=== PATIENT | female | born 1985 | race Caucasian/White ===

== ENCOUNTER 2020-03-28 16:10 | Emergency (ER) | payer OTHER ==
[2020-03-28] MEDS ORDERED: IBUPROFEN 600 MG TABLET (FP) PO ONE (16:42)
[2020-03-28 16:45] VITALS: BP 113/72; PULSE 74; TEMP 98.4; BMI 29.2
--- NOTE | 2020-03-28 16:45 | PDOC ---
Documentation entered by Isa Jaquez SCRIBE, acting as scribe for Maddison Daniels MD. Maddison Daniels MD: This documentation has been prepared by the Leonid peguero Xhesika, SCRIBE, under my direction and personally reviewed by me in its entirety. I confirm that the documentation accurately reflects all work, treatment, procedures, and medical decision making performed by me. History of Present Illness - General Chief Complaint: Pain Stated Complaint: LEFT KNEE PAIN Time Seen by Provider: 03/28/20 16:16 History Source: Patient Exam Limitations: No Limitations - History of Present Illness Initial Comments: 03/28/20 16:46 HPI The patient is a 34 y/o F with a PMH of asthma, gastric ulcers and multiple environmental allergies who presents to the ED with 2 weeks of bilateral knee swelling, L>R. Pt states she has been doing aerobics, walking and jogging. Pt reports 5 day of L knee pain, associated with L knee tingling when sitting. Pt states her pain is worse with walking and going up the stairs. Pt states she has not worked out or walked for the past week. Pt notes she has been icing her knee and elevating it. Pt admits to heavy exercising and running which she escalated pretty quickly, where she now runs 5 -7 miles per day, though not since last week due to her knee swelling/pain. Pt reports her PCP advised her to come to the ED for an XRAY and further evaluation. Pt notes she has been taking Motrin for the past 2 days, but did not take any today. Denies fever, chills, chest pain, SOB, palpitation, dizziness, weakness, N, V, D, abdominal pain, bladder and bowel problems. Denies any Lower extremity numbness or focal weakness, gait instability or falls.. Allergies: environmental allergies Past Medical History: asthma, gastric ulcers, allergies Social history: Lives with family. No tobacco, ETOH or drug use. Surgical history: Meds: as documented in EMR PMD: Dr. Joby RUIZ Constitutional: no fevers or chills. Abdomen: no abdominal pain MUSCULOSKELETAL: +Bilateral knee swelling, L>R. + L knee pain. +L knee tingling Back: no back pain SKIN: no redness or skin changes, no discharge, no rash. No wounds. Hematologic: no easy bruising/bleeding. NEUROLOGIC: No weakness, numbness or tingling. Allergic/Immunologic: no allergies All other systems reviewed and negative, or as documented in HPI. PE General: NAD, well appearing Abdomen: soft, no tenderness, nondistended Vascular: 2+ DP pulses symmetric and equal. Back: no midline tenderness, no stepoffs, FROM MSK: soft compartment. no calf tenderness. 5/5 plantar and dorsiflexion. SILT. no laxity at knee jt. 2+ DP pulses bilaterally. No palpable effusion. no warmth, no ecchymosis. no swelling to b/l knees. no calf tenderness noted Neuro: alert, no focal neurologic deficits, gait stable. Skin: color normal color, warm and well perfused. Cap refill <2 sec. 03/28/20 16:49 Past History - Medical History Allergies/Adverse Reactions: Allergies Allergy/AdvReac Type Severity Reaction Status Date / Time No Known Allergies Allergy Verified 03/28/20 16:11 Home Medications: Ambulatory Orders NK [No Known Home Medication] 03/28/20 Asthma: No Cancer: No Cardiac Disorders: No COPD: No Diabetes: No GI Disorders: Yes (GASTRIC ULCER) HTN: No Seizures: No Thyroid Disease: No - Reproductive History Therapeutic (s) & number: No - Immunization History Immunization Up to Date: Yes - Psycho-Social/Smoking History Smoking Status: No Smoking History: Never smoked Have you smoked in the past 12 months: No Number of Cigarettes Smoked Daily: 0 Cigars Per Day: 0 Medical Decision Making - Medical Decision Making 03/28/20 16:51 Vital Signs Temp Pulse Resp BP Pulse Ox 98.4 F 74 20 113/72 100 03/28/20 16:11 03/28/20 16:11 03/28/20 16:11 03/28/20 16:11 03/28/20 16:11 Vitals reviewed within normal limits Differential diagnosis includes knee sprain, strain, effusion. There is no evidence to suggest DVT. There is also no evidence to suggest infection or bursitis or septic arthritis. Symptoms are most consistent with a knee sprain and heavy exercise causing stress to the knees particularly with going down the stairs. Patient also admits to not wearing properly fitted shoes and has also progressed her exercise regimen pretty rapidly since she resumed her exercising over the last couple of weeks. She had last worked out back in December before the pandemic. X-ray of the affected/left knee negative for fracture dislocation, no acute pathology is noted Patient given Carmine wrap for compression, rest ice and elevation recommended, range of motion exercises as tolerated, rest adequately. advised properly fitted shoes and gradual rise in her exercise regimen to avoid strain/trauma. Orthopedic and primary care follow-up. Conservative management, OTC analgesia including Tylenol/Motrin as needed, preferably NSAIDs due to anti-inflammatory component. Return precautions discussed. Patient made aware of impression and plan and verbalized understanding 03/28/20 16:53 Discharge - Discharge Information Problems reviewed: Yes Clinical Impression/Diagnosis: Left anterior knee pain Condition: Improved Disposition: HOME - Admission No - Follow up/Referral Referrals: Jhonathan Noguera MD [Staff Physician] - Mahad Porter DO [Staff Physician] - Herve Mcclain MD [Staff Physician] - - Patient Discharge Instructions Patient Printed Discharge Instructions: DI for Knee Pain Additional Instructions: You most likely have musculoskeletal strain involving your knee Avoid heavy lifting or strenuous activity to minimize further injury This should heal over the next 3-5 days. RICE rest ice elevate the affected area Rest, Ice (20 minutes at a time, 3 times a day), Compression (CARMINE wrap or splint), Elevation (above the heart). Apply ice to the area for 10 minutes every 2 hours for the first 2 days after the injury to reduce swelling. CARMINE wrap will help with compression, swelling and the pain physical activity as tolerated. continue with range of motion exercises, as this will facilitate the healing process; avoid being bed bound and immobile. If you have any worsening of symptoms, including severe pain/swelling/redness/numbness/changes in sensation/weakness/paralysis or any other concerns please return to the Emergency Department immediately. You were given a copy of the results from any tests performed today in the Emergency Department which have results available. Show these to your doctor(s). Some of the tests we sent may not have results yet so please call or have your doctor call the Emergency Department to follow up on all results. Please continue taking your home medications as directed. Do not use alcohol when taking any medication (especially antibiotics, tylenol or other pain medication) unless you check with the doctor or pharmacist. -May take ibuprofen 400-600mg and/or tylenol 650 to 975 mg every 6 hours as needed for mild to moderate pain, available over the counter. This does not require narcotics, as it will precipitate injuries and falls. Please follow up with your primary doctor(s) or orthopedics specialist within the next 1 week, but seek medical care sooner if your symptoms persist or w orsen. Please call as soon as possible for an appointment. If you cannot follow up with your doctor please return to the Emergency Department for any urgent issues. Follow up with your primary care physician in 1 week if symptoms persist, or with orthopedics specialists if needed, referrals have been provided. - Post Discharge Activity
== END 2020-03-28 16:51 | disposition home or self-care (01) ==
LOC: FER 16:10 → SUPCPDRO 16:10 → FER 16:51
DX: M25.562 Pain in left knee (principal)
CPT/HCPCS: 73562-TC-LT-FY; 99283-25

== ENCOUNTER 2020-07-11 16:24 | Emergency (ER) | payer OTHER ==
--- OUTSIDE RECORDS SUMMARY | 2020-07-11 16:32 | XMS ---
:1985 Author Organization [facility] Care Team Providers Name Role Phone JAYLIN ALAMO. Unavailable Unavailable Re-disclosure Warning The records that you are about to access may contain information from federally- assisted alcohol or drug abuse programs. If such information is present, then the following federally mandated warning applies: This information has been disclosed to you from records protected by federal confidentiality rules (42 CFR part 2). The federal rules prohibit you from making any further disclosure of this information unless further disclosure is expressly permitted by the written consent of the person to whom it pertains or as otherwise permitted by 42 CFR part 2. A general authorization for the release of medical or other information is NOT sufficient for this purpose. The Federal rules restrict any use of the information to criminally investigate or prosecute any alcohol or drug abuse patient.The records that you are about to access may contain highly sensitive health information, the redisclosure of which is protected by Article 27-F of the [facility] Public Health law. If you continue you may haveaccess to information: Regarding HIV / AIDS; Provided by facilities licensed or operated by the [facility] Office of Mental Health; or Provided by the [facility] Office for People With Developmental Disabilities. If such information is present, then the following [facility] mandated warning applies: This information has been disclosed to you from confidential records which are protected by state law. State law prohibits you from making any further disclosure of this information without the specific written consent of the person to whom it pertains, or as otherwise permitted by law. Any unauthorized further disclosure in violation of state law may result in a fine or mcc sentence or both. A general authorization for the release of medical or other information is NOT sufficient authorization for further disclosure. Encounters Encounter Providers Location Date Indications Data Source(s ) Outpatient Attender: CALLY 01/07/2020 Z03.818 [facility] JAYLIN ArreolaAdmitter: 03:52:00 AM Health Care JAYLIN ALAMO EDT Corpora tion Z03.818 Insurance Providers Payer name Policy type Policy ID Covered Covered constitution party's Policy P maria l / Coverage constitution party ID relationship to [employer] ormation type tang MEDICAID [id number] SP [id number] MVP [id number] SP [id number] ESSENTIAL PLAN 1 2 MVP [id number] SP [id number] ESSENTIAL PLAN 1 2 Problems, Conditions, and Diagnoses Code Display Name Description Problem Type Effective Data Sour ce(s) Dates Z03.818 Encounter for ENCNTR FOR OBS Diagnosis 01/07/2020 [facility] observation for FOR SUSP EXPSR TO 03:52:00 AM Spect[employer] [facility] suspected OTH BIOLG AGENTS [employer] poration exposure to other RULED OUT biological agents ruled out Results ID Date Data Source [id number] 01/07/2020 12:00:00 AM EDT [facility] Name Value Range Interpretation Code Description Data Emmie rce(s) Supporting Document(s ) 2019-nCoV [facility] RNA XXX DANIEL+probe- Imp This lab was ordered by [facility] and reported by [employer] Procedure
[2020-07-11] MEDS ORDERED: MAG HYDROX/AL HYDROX/SIMETH 30 ML UNIT-DOSE CUP PO ONE (16:39)
[2020-07-11] MEDS ORDERED: PANTOPRAZOLE 40 MG TABLET PO ONE (16:39)
[2020-07-11] MEDS ORDERED: ACETAMINOPHEN 325 MG TABLET (FP) PO ONE (16:39)
[2020-07-11] MEDS ORDERED: ONDANSETRON *ODT* 4 MG TABLET SL ONE (16:40)
--- NOTE | 2020-07-11 16:41 | PDOC ---
History of Present Illness - General Chief Complaint: Pain Stated Complaint: abd pain Time Seen by Provider: 07/11/20 16:30 History Source: Patient Exam Limitations: No Limitations - History of Present Illness Initial Comments: 07/11/20 16:41 HPI 35 y/o F with a PMH of asthma, gastric ulcers and multiple environmental allergies who presents to the ED with 2 weeks of intermittent epigastric pain. Pt states she had worsening epigastric abdominal pain today, where it was described as "sharp" and achy, radiating around to her back, associated with nausea and one episode of NBNB emesis. she took pepcid without relief. 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 denies food triggers or precipitants; has been compliant with her diet to minimize citrus fruits, spicy foods, fatty foods LMP about 1 week ago on 07/03/20, denies Denies fever, chills, chest pain, SOB, palpitation, dizziness, weakness, diarrhea, bloody stools or emesis, bladder and bowel problems. Denies any Lower extremity numbness or focal weakness, no hematuria, no frequency or urgency or dysuria. Allergies: environmental allergies Past Medical History: asthma, gastric ulcers, allergies Social history: Lives with family. No tobacco, ETOH or drug use. Surgical history: Meds: as documented in EMR PMD: Dr. Hemphill Review of systems Constitutional: no fevers or chills. No weakness HEENT: no headache or dizziness. No congestion. No visual/hearing disturbances. CVS: no cp or syncope. Resp: no sob. No cough. Gastrointestinal: +abdominal pain, nausea, vomiting, No bloody stools, no diarrhea. Genitourinary: no urinary sx, hematuria. no urgency/frequency or dysuria. MUSCULOSKELETAL: No joint pain and swelling. No neck or back pain. SKIN: no redness or skin changes, no discharge, no rash. No wounds. Hematologic: no easy bruising/bleeding. NEUROLOGIC: No headache, dizziness, LOC or altered mental status. No weakness, numbness or tingling. Psych: no anxiety or depression Allergic/Immunologic: no allergies All other systems reviewed and negative, or as documented in HPI. Physical exam General: Well appearing, awake and alert, NAD. HEENT: NCAT, PERRL, EOMI, clear conjunctiva, anicteric, moist mucus membranes, clear oropharynx, no oral lesions.. Neck: neck supple, FROM Resp: CTAB, normal and even respirations, no respiratory distress CVS: RRR, no murmurs, 2+ peripheral pulses throughout, no peripheral edema Abdomen: soft, nondistended. +epigastric TTP. no goodwin's sign. no mcburney's point tenderness, no rebound or guarding. Back: nontender, normal inspection and ROM MSK: no edema, MEI x4, ROM intact. No clubbing or cyanosis. normal bulk and tone. Extremities: no calf tenderness Neuro: alert, oriented appropriately; no focal neurologic deficits Psych: Calm and cooperative Skin: warm and well perfused, cap refill <2 sec, normal color, no rash or skin discoloration. 07/11/20 16:41 07/11/20 16:43 07/11/20 17:07 07/11/20 17:13 Past History - Medical History Allergies/Adverse Reactions: Allergies Allergy/AdvReac Type Severity Reaction Status Date / Time No Known Allergies Allergy Verified 07/11/20 16:25 Home Medications: Ambulatory Orders Loratadine 10 mg PO DAILY 07/11/20 Mag Hydrox/Al Hydrox/Simeth [Mylanta Suspension -] 30 ml PO Q6H PRN #1 bottle 07/11/20 Ondansetron [Zofran *Odt*] 4 mg SL TID PRN #9 od.tablet 07/11/20 Asthma: No Cancer: No Cardiac Disorders: No COPD: No Diabetes: No GI Disorders: Yes (GASTRIC ULCER) HTN: No Seizures: No Thyroid Disease: No - Reproductive History Therapeutic (s) & number: No - Immunization History Immunization Up to Date: Yes - Psycho-Social/Smoking History Smoking Status: No Smoking History: Never smoked Have you smoked in the past 12 months: No Number of Cigarettes Smoked Daily: 0 Cigars Per Day: 0 ED Treatment Course - LABORATORY CBC & Chemistry Diagram: 07/11/20 17:00 07/11/20 17:00 Medical Decision Making - Medical Decision Making 07/11/20 17:07 DDx abdominal pain: Renal colic, biliary colic, metabolic/electrolyte derangements. GERD, PUD, esophageal spasm, pancreatitis, hepatitis, constipation, colitis, gastroenteritis, cholecystitis, UTI, pyelonephritis, ileus, SBO, medication side effect, hernia, appendicitis, diverticulitis, mesenteric ischemia. msk strain, mesenteric adenitis, psoas abscess. - no GIB - no pelvic sx. no lower abdominal tenderness. - labs and lytes wnl. UA neg, neg preg test. - lipase wnl The patient appears comfortable and states that pain is improved. Given medications pepcid, maalox, zofran, tylenol and IVF with clinical improvement. this is likely related to her gastritis/PUD, doubt acute pathology, doubt biliary or intra abdominal pathology. Tolerating oral intake. Vital signs reviewed and are normal. On repeat physical exam, the abdomen is soft and nontender, no suggestive findings for acute abdominal process at this time. All diagnostics tests reviewed and discussed with the patient. The patient was advised that even though there is no evidence of a surgical emergency at this time, sometimes this is not visible early in a disease course and that if there is additional pain they are to return for repeat evaluation. The patient stated understanding of this, has decision making capacity and is discharged in stable condition. The patient was instructed to return to the emergency department for re-evaluation in 8-12 hours and sooner if they feel worse in any way. GI follow up and referrals given, PMD follow up with Dr Hemphill 07/12/20 17:03 Discharge - Discharge Information Problems reviewed: Yes Clinical Impression/Diagnosis: Epigastric abdominal pain Condition: Improved Disposition: HOME - Admission No - Additional Discharge Information Prescriptions: Mag Hydrox/Al Hydrox/Simeth [Mylanta Suspension -] 30 ml PO Q6H PRN #1 bottle PRN Reason: heartburn Ondansetron [Zofran *Odt*] 4 mg SL TID PRN #9 od.tablet PRN Reason: nausea/vomiting - Follow up/Referral Referrals: Deon Hemphill MD, MD [Staff Physician] - Vel Ruiz MD [Staff Physician] - Vanessa Cleary MD [Staff Physician] - Oneil Jackman DO [Staff Physician] - - Patient Discharge Instructions Patient Printed Discharge Instructions: Gastritis (Alternative Therapy), DI for Gastritis, DI for Abdominal Pain-Adult Additional Instructions: Please return to the emergency department immediately should you feel worse in any way or have any of the following symptoms: increasing or different abdominal pain, persistent vomiting, fevers or shaking chills. Please return to the emergency department for a recheck in 8-12 hours if the pain is persistent or worse so we can re-evaluate you and ensure that you are not developing a problem that would require surgery or hospitalization. - Post Discharge Activity Work/Back to School Note: Back to Work
[2020-07-11] MEDS ORDERED: ONDANSETRON 4 MG/2 ML VIAL IVPUSH ONE (16:48)
[2020-07-11] MEDS ORDERED: FAMOTIDINE 20 MG/50 ML IVPB 20 MG/50 ML MG IVPB ONE ×2 (16:49→17:10)
[2020-07-11] MEDS ORDERED: ACETAMINOPHEN 500 MG TABLET (FP) ONE (17:10)
[2020-07-11] MEDS ORDERED: ONDANSETRON 4 MG/2 ML VIAL ONE (17:10)
[2020-07-11] MEDS ORDERED: MAG HYDROX/AL HYDROX/SIMETH 30 ML UNIT-DOSE CUP ONE (17:10)
[2020-07-11 17:23] LABS: BASO % 0.6 % (0-2.0); HEMATOCRIT 39.2 % (32.4-45.2); HEMOGLOBIN 13.1 GM/dl (10.7-15.3); LYMPH % 23.7 % (8-40); MCH 31.3 pg (25.7-33.7); MCHC 33.3 g/dl (32.0-36.0); MEAN CELL VOLUME 93.9 fl (80-96); MEAN PLT VOLUME 10.2 fl (7.5-11.1); NEUT % 69.7 % (42.8-82.8); PLATELET COUNT 281 K/MM3 (134-434); RBC 4.17 M/mm3 (3.60-5.2); RDW 13.1 % (11.6-15.6); WHITE BLOOD COUNT 8.4 K/mm3 (4.0-10.8)
[2020-07-11 17:26] LABS: BILIRUBIN,TOTAL 0.4 mg/dl (0.2-1); CALCIUM 9.1 mg/dl (8.5-10); CREATININE 0.7 mg/dl (0.55-1.3); POTASSIUM 3.9 mmol/L (3.5-5.1); TOT PROT 7.5 g/dl (6.4-8.2)
[2020-07-11 17:50] LABS: HCG,QUALITATIVE URINE Negative
[2020-07-11 17:55] VITALS: BMI 28.0
[2020-07-11] MEDS ORDERED: SODIUM CHLORIDE 0.9% 500 ML INFUS.BAG IV ONE (17:56)
[2020-07-11 18:21] VITALS: BP 119/76; PULSE 81; TEMP 99.5
== END 2020-07-11 19:07 | disposition home or self-care (01) ==
LOC: FER 16:24
PROC: 3E033GC Introduction of Other Therapeutic Substance into Peripheral Vein, Percutaneous Approach (ICD-10-PCS; principal; 2020-07-11)
DX: R10.13 Epigastric pain (principal)
CPT/HCPCS: 36415; 80053; 81003; 81015; 83690; 84703; 85025; 99284-25

== ENCOUNTER 2021-10-05 12:12 | Emergency (ER) | payer OTHER ==
[2021-10-05 12:39] VITALS: BP 112/60; PULSE 88; TEMP 98.8; BMI 26.2
[2021-10-05] MEDS ORDERED: AZITHROMYCIN 250 MG TABLET PO ONE (13:03)
[2021-10-05] MEDS ORDERED: FLUCONAZOLE 150 MG TABLET PO ONE ×2 (13:05→13:07)
[2021-10-05] MEDS ORDERED: AZITHROMYCIN 500 MG TABLET ONE (13:10)
[2021-10-06 21:09] LABS: SARS-CoV-2 NAA Not Detected (Not Detected)
== END 2021-10-05 13:16 | disposition home or self-care (01) ==
LOC: FER 12:12
DX: R05.9 Cough, unspecified (principal)
CPT/HCPCS: 71045-TC-FY; 81025; 99284-25; C9803; U0003; U0005

== ENCOUNTER 2022-06-21 18:36 | Observation (INO) | payer OTHER ==
[2022-06-21] MEDS ORDERED: MAG HYDROX/AL HYDROX/SIMETH 30 ML UNIT-DOSE CUP ONE (18:45)
[2022-06-21 18:49] VITALS: BMI 24.7
[2022-06-21] MEDS ORDERED: ACETAMINOPHEN INJECTION 100 ML IVPB ONE (19:05)
[2022-06-21] MEDS ORDERED: FAMOTIDINE 20 MG/50 ML IVPB 20 MG/50 ML MG IVPB ONE ×2 (19:05→19:09)
[2022-06-21 19:06] LABS: HEMATOCRIT 39.2 % (32.4-45.2); HEMOGLOBIN 13.9 G/dL (10.7-15.3); MCH 34.4 pg (25.7-33.7); MCHC 35.5 g/dl (32.0-36.0); MEAN CELL VOLUME 97.1 fl (80-96); PLATELET COUNT 281.7 10^3/uL (134-434); RBC 4.04 10^6/uL (3.60-5.2); RDW 14.6 % (11.6-15.6); WHITE BLOOD COUNT 9.6 10^3/uL (4.0-10.8)
[2022-06-21] MEDS ORDERED: MAG HYDROX/AL HYDROX/SIMETH 30 ML UNIT-DOSE CUP PO PRN (19:08)
[2022-06-21] MEDS ORDERED: ACETAMINOPHEN 1000 MG/100 ML BAG IVPB ONE (19:08)
[2022-06-21] MEDS ORDERED: LIDOCAINE VISCOUS 2% ORAL/TOP 15 ML UNIT-DOSE CUP MM ONE (19:09)
[2022-06-21 19:11] LABS: HCG,QUALITATIVE URINE Negative
[2022-06-21 19:25] LABS: ALBUMIN 3.9 g/dl (3.4-5.0); BILIRUBIN,TOTAL 0.5 mg/dl (0.2-1); CALCIUM 9.2 mg/dl (8.5-10); CREATININE 0.5 mg/dl (0.55-1.3); TOT PROT 6.8 g/dl (6.4-8.2)
[2022-06-21 19:29] LABS: PLATELET ESTIMATE ADEQUATE
[2022-06-21] MEDS ORDERED: morphine CARPU-JECT 2 MG/1 ML DISP.SYRIN IVPUSH ONE (20:31)
[2022-06-21] MEDS ORDERED: morphine SULFATE 4 MG/ML VIAL ONE (20:39)
[2022-06-22] MEDS ORDERED: DOCUSATE SODIUM 100 MG CAPSULE (FP) PO PRN
[2022-06-22] MEDS ORDERED: DEXTROSE 5%-NORMAL SALINE 1,000 ML IV SCH
[2022-06-22] MEDS ORDERED: ACETAMINOPHEN 1000 MG/100 ML BAG IVPB PRN (00:03)
[2022-06-22 00:47] VITALS: RESP 16
[2022-06-22] MEDS ORDERED: ONDANSETRON 4 MG/2 ML VIAL IVPUSH PRN (03:09)
[2022-06-22 08:15] LABS: CALCIUM 8.6 mg/dl (8.5-10); CREATININE 0.4 mg/dl (0.55-1.3)
[2022-06-22 09:32] LABS: BASO % 0.3 % (0-2.0); EOS % 2.6 % (0-4.5); HEMATOCRIT 36.6 % (32.4-45.2); LYMPH % 32.6 % (8-40); MCH 31.5 pg (25.7-33.7); MCHC 32.7 g/dl (32.0-36.0); MEAN CELL VOLUME 96.2 fl (80-96); MEAN PLT VOLUME 10.1 fl (7.5-11.1); MONO % 7.5 % (3.8-10.2); PLATELET COUNT 246 10^3/uL (134-434); RBC 3.81 M/mm3 (3.60-5.2); RDW 14.3 % (11.6-15.6); WHITE BLOOD COUNT 6.8 K/mm3 (4.0-10.0)
[2022-06-22 09:34] VITALS: TEMP 98.9
[2022-06-22] MEDS ORDERED: morphine SULFATE 4 MG/ML VIAL ONE (09:36)
[2022-06-22] MEDS ORDERED: PANTOPRAZOLE 40 MG TABLET PO ONE (09:36)
[2022-06-22] MEDS ORDERED: PANTOPRAZOLE 40 MG TABLET PO SCH (10:00)
[2022-06-22 13:26] VITALS: BP 119/80; PULSE 84
[2022-06-23] MEDS ORDERED: ACETAMINOPHEN 325 MG TABLET (FP) PO PRN
== END 2022-06-22 13:53 | disposition home or self-care (01) ==
LOC: FER 18:36 → UNDOADMOB 21:32 → FM/S 21:32 → FER 06-22 13:53
PROVIDERS: ADMIT Internal Medicine; ATTEND Internal Medicine
PROC: 3E033NZ Introduction of Analgesics, Hypnotics, Sedatives into Peripheral Vein, Percutaneous Approach (ICD-10-PCS; principal; 2022-06-21)
PROC: 3E033GC Introduction of Other Therapeutic Substance into Peripheral Vein, Percutaneous Approach (ICD-10-PCS; 2022-06-21)
PROC: 3E033NZ Introduction of Analgesics, Hypnotics, Sedatives into Peripheral Vein, Percutaneous Approach (ICD-10-PCS; 2022-06-21)
DX: U07.1 COVID-19 (principal); R10.13 Epigastric pain; R19.7 Diarrhea, unspecified
CPT/HCPCS: 36415; 80048; 80053; 81003; 82150; 83690; 84110; 84703; 85025; 85027; 96365; 96375; 96376; 99285-25; C9803-CS; G0378; U0003; U0005

== ENCOUNTER 2023-07-28 06:00 | Inpatient (IN) | payer OTHER ==
[2023-07-28] MEDS ORDERED: CITRIC ACID/SODIUM CITRATE 30 ML UNIT-DOSE CUP PO ONE (06:15)
[2023-07-28] MEDS ORDERED: ELECTROLYTE-148 SOLN 500 ML IV ONE (06:15)
[2023-07-28 06:41] VITALS: BMI 34.7
[2023-07-28] MEDS ORDERED: ELECTROLYTE-148 SOLN 1,000 ML IV SCH ×2 (06:45→08:00)
[2023-07-28] MEDS ORDERED: morphine SULFATE/PF 1 MG/2 ML (2cc Syringe - QUVA) ONE (07:49)
[2023-07-28] MEDS ORDERED: FENTANYL CITRATE/PF 50 MCG/ML VIAL ONE (07:50)
[2023-07-28] MEDS ORDERED: ONDANSETRON 4 MG/2 ML VIAL ONE ×2 (08:24→10:27)
[2023-07-28] MEDS ORDERED: ceFAZolin SODIUM 1 GM VIAL ONE (08:24)
[2023-07-28] MEDS: CEFAZOLIN 1 GM in DEXTROSE 5%-WATER - 50 ML IVPB SCH ×2 (08:30→17:32)
[2023-07-28] MEDS ORDERED: OXYTOCIN 10 UNITS/ML VIAL ONE (08:53)
[2023-07-28] MEDS ORDERED: KETOROLAC TROMETHAMINE 30 MG/1 ML VIAL ONE (09:32)
[2023-07-28] MEDS ORDERED: WITCH HAZEL 50% (TUCKS) 40 PAD/JAR PAD TP PRN (09:41)
[2023-07-28] MEDS ORDERED: SENNOSIDES/DOCUSATE COMBO (SENNA PLUS) TABLET (UD) PO PRN (09:41)
[2023-07-28] MEDS ORDERED: IBUPROFEN 600 MG TABLET (FP) PO PRN (09:41)
[2023-07-28] MEDS ORDERED: BENZOCAINE 20% 57 GM BOTTLE TP PRN (09:41)
[2023-07-28] MEDS ORDERED: BENZOCAINE 28 GM HEMORRHOIDAL OINTMENT TP PRN (09:41)
[2023-07-28] MEDS ORDERED: METHYLERGONOVINE MALEATE 0.2 MG/1 ML AMP IM PRN (09:41)
[2023-07-28] MEDS ORDERED: IBUPROFEN 800 MG/8 ML IJ IVPB PRN (09:41)
[2023-07-28] MEDS ORDERED: NALOXONE HCL 0.4 MG/ML VIAL IVPUSH PRN (09:55)
[2023-07-28] MEDS ORDERED: oxyCODONE HCL 5 MG TABLET PO PRN ×2 (09:55)
[2023-07-28] MEDS ORDERED: ONDANSETRON 4 MG/2 ML VIAL IVPUSH PRN (09:55)
[2023-07-28] MEDS: OXYTOCIN 20 UNITS in 0.9% NS 20 UNIT/1,000 ML INFUS.BAG IV SCH ×2 (10:00→17:32)
[2023-07-28] MEDS ORDERED: ACETAMINOPHEN 325 MG TABLET (FP) PO SCH (10:00)
[2023-07-28] MEDS ORDERED: OXYTOCIN 20 UNITS in 0.9% NS 20 UNIT/1,000 ML INFUS.BAG IV ONE (10:14)
[2023-07-28 10:25] LABS: HIV INTERPRETATION NEGATIVE (NEGATIVE)
[2023-07-28 11:08] LABS: CORD BASE EXCESS -6.5 mmol/L (0-2); CORD PCO2 42.9 mmHg (30-78); CORD pH 7.286 (7.14-7.44)
[2023-07-28 11:13] LABS: CORD BASE EXCESS -3.4 mmol/L (0-2); CORD HCO3 25.1 mmHg (20-29); CORD PCO2 57.4 mmHg (30-78); CORD pH 7.259 (7.14-7.44)
[2023-07-28] MEDS: PRENATAL VITAMINS W/ FOLIC ACID TABLET (FP) PO SCH (16:19)
[2023-07-29] MEDS: CEFAZOLIN 1 GM in DEXTROSE 5%-WATER - 50 ML IVPB SCH (01:06)
[2023-07-29] MEDS: oxyCODONE HCL 5 MG TABLET PO PRN ×3 (04:55→19:47)
[2023-07-29] MEDS ORDERED: BISACODYL 10 MG SUPP.RECT RC PRN (09:42)
[2023-07-29] MEDS: PRENATAL VITAMINS W/ FOLIC ACID TABLET (FP) PO SCH (10:08)
[2023-07-29] MEDS: SIMETHICONE 80 MG TAB.CHEW (FP) PO PRN ×3 (10:08→17:36)
[2023-07-29] MEDS: ACETAMINOPHEN 325 MG TABLET (FP) PO PRN ×2 (10:13→17:36)
[2023-07-29] MEDS: OXYTOCIN 20 UNITS in 0.9% NS 20 UNIT/1,000 ML INFUS.BAG IV SCH (17:51)
[2023-07-30] MEDS: SIMETHICONE 80 MG TAB.CHEW (FP) PO PRN ×4 (02:05→22:16)
[2023-07-30] MEDS: oxyCODONE HCL 5 MG TABLET PO PRN ×4 (02:05→22:16)
[2023-07-30] MEDS: PRENATAL VITAMINS W/ FOLIC ACID TABLET (FP) PO SCH (09:16)
[2023-07-30] MEDS: ACETAMINOPHEN 325 MG TABLET (FP) PO PRN (15:58)
[2023-07-31] MEDS: oxyCODONE HCL 5 MG TABLET PO PRN ×2 (04:30→12:06)
[2023-07-31] MEDS: SIMETHICONE 80 MG TAB.CHEW (FP) PO PRN (04:30)
[2023-07-31] MEDS: PRENATAL VITAMINS W/ FOLIC ACID TABLET (FP) PO SCH (10:53)
[2023-07-31 11:13] VITALS: BP 96/60; PULSE 83; RESP 17; TEMP 97.4
== END 2023-07-31 13:15 | disposition home or self-care (01) | DRG 540 ==
LOC: JLDR 06:00 → J3W 12:20 → UNDODISIN 19:58
PROVIDERS: ADMIT Obstetrics & Gynecology; ATTEND Obstetrics & Gynecology
PROC: 10D00Z1 Extraction of Products of Conception, Low, Open Approach (ICD-10-PCS; principal; 2023-07-28)
DX: O34.211 Maternal care for low transverse scar from previous cesarean delivery (principal); N85.8 Other specified noninflammatory disorders of uterus; Z3A.39 39 weeks gestation of pregnancy; Z37.0 Single live birth
CPT/HCPCS: 36415; 36600; 80053; 82803; 85025; 85610; 85730; 86780; 86850; 86900; 86901; 87389; 88307-TC; 94010

== ENCOUNTER 2024-01-26 12:48 | Emergency (ER) | payer OTHER ==
[2024-01-26 12:56] VITALS: RESP 18; TEMP 98; BMI 30.2
[2024-01-26 13:00] VITALS: BP 115/71; PULSE 81
[2024-01-26] MEDS: ALBUTEROL SO4 2.5/IPRATROPIUM 0.5 INH SOL 3 ML VIAL.NEB. NEB ONE (13:20)
[2024-01-26] MEDS ORDERED: ALBUTEROL SO4 2.5/IPRATROPIUM 0.5 INH SOL 3 ML VIAL.NEB. NEB ONE (13:26)
== END 2024-01-26 14:01 | disposition home or self-care (01) ==
LOC: FER 12:48
PROC: 3E0F7GC Introduction of Other Therapeutic Substance into Respiratory Tract, Via Natural or Artificial Opening (ICD-10-PCS; principal; 2024-01-26)
DX: R05.9 Cough, unspecified (principal)
CPT/HCPCS: 71046-TC-FY; 87633; 99284-25

== ENCOUNTER 2024-06-22 12:20 | Emergency (ER) | payer OTHER ==
[2024-06-22 12:35] VITALS: BP 111/58; PULSE 74; RESP 20; TEMP 98.2; BMI 31.1
[2024-06-22] MEDS ORDERED: METOCLOPRAMIDE HCL INJECTION 10 MG/2 ML VIAL ONE (13:36)
[2024-06-22] MEDS: METOCLOPRAMIDE HCL INJECTION 10 MG/2 ML VIAL IVPB ONE (14:02)
[2024-06-22] MEDS: SODIUM CHLORIDE 0.9% 500 ML INFUS.BAG IV ONE (14:02)
[2024-06-22] MEDS: MAGNESIUM SULF 50% (8.12 MEQ/2 ML-1 GM VIAL) IVPB ONE (14:02)
[2024-06-22] MEDS ORDERED: KETOROLAC TROMETHAMINE 15 MG/ML VIAL ONE (14:04)
[2024-06-22] MEDS ORDERED: MAGNESIUM SULFATE IN WATER 2 GM/50 ML IVPB IVPB ONE (14:04)
[2024-06-22] MEDS: KETOROLAC TROMETHAMINE 15 MG/ML VIAL IVPUSH ONE (14:24)
== END 2024-06-22 15:41 | disposition home or self-care (01) ==
LOC: FER 12:20
PROC: 3E0233Z Introduction of Anti-inflammatory into Muscle, Percutaneous Approach (ICD-10-PCS; principal; 2024-06-22)
PROC: 3E033GC Introduction of Other Therapeutic Substance into Peripheral Vein, Percutaneous Approach (ICD-10-PCS; 2024-06-22)
PROC: 3E033GC Introduction of Other Therapeutic Substance into Peripheral Vein, Percutaneous Approach (ICD-10-PCS; 2024-06-22)
DX: G43.909 Migraine, unspecified, not intractable, without status migrainosus (principal); R11.2 Nausea with vomiting, unspecified
CPT/HCPCS: 84703; 99284-25